=== PATIENT | female | born 2000 | race Caucasian/White ===

== ENCOUNTER 2020-04-16 09:40 | Outpatient (REF) | payer OTHER, SELFPAY | END 2020-04-16 09:41 | disposition home or self-care (01) | LOC: HO.LNP 09:40 | PROVIDERS: PCP Physician Assistant; Referring Provider Physician Assistant; Visit Provider Obstetrics & Gynecology | DX: N39.0 Urinary tract infection, site not specified (principal); R79.89 Other specified abnormal findings of blood chemistry | CPT/HCPCS: 87086; 87088; 87186; 99212 ==

== ENCOUNTER → 2020-07-22 10:38 | Outpatient (BNVA) | payer OTHER, SELFPAY | PROVIDERS: PCP Physician Assistant; Visit Provider Obstetrics & Gynecology | DX: Z30.9 Encounter for contraceptive management, unspecified (principal) | CPT/HCPCS: 99212 ==

== ENCOUNTER 2020-10-30 14:25 | Outpatient (REF) | payer OTHER, SELFPAY ==
[2020-11-01 02:04] LABS: CT PCR NOT DETECTED (Not Detect.); NG PCR NOT DETECTED (Not Detect.)
[2020-11-01 13:35] LABS: BV Int Neg Control Negative (Negative); BV Int Pos Control Positive (Positive)
[2020-11-12 21:26] LABS: HPV 16 RNA NOT DETECTED (NOT DETECTED); HPV mRNA E6/E7 rflx Detected (Not Detected)
== END 2020-10-30 14:26 | disposition home or self-care (01) ==
LOC: HO.LAB 14:25
PROVIDERS: PCP Physician Assistant; Visit Provider Advanced Practice Midwife
DX: Z01.419 Encounter for gynecological examination (general) (routine) without abnormal findings (principal); Z11.3 Encounter for screening for infections with a predominantly sexual mode of transmission; Z20.2 Contact with and (suspected) exposure to infections with a predominantly sexual mode of transmission
CPT/HCPCS: 87480; 87491; 87510; 87591; 87624; 87625; 87660; 88142

== ENCOUNTER → 2021-03-06 09:58 | Outpatient (BNVA) | payer OTHER, SELFPAY | PROVIDERS: Visit Provider Advanced Practice Midwife | DX: Z30.017 Encounter for initial prescription of implantable subdermal contraceptive (principal) | CPT/HCPCS: 11981; 81025; 99212; J7307 ==

== ENCOUNTER 2021-09-17 12:30 | Outpatient (REF) | payer OTHER, SELFPAY ==
[2021-09-17 17:56] LABS: CT PCR NOT DETECTED (Not Detect.); NG PCR NOT DETECTED (Not Detect.)
[2021-09-18 11:09] LABS: BV Int Neg Control Negative (Negative); BV Int Pos Control Positive (Positive)
== END 2021-09-17 12:31 | disposition home or self-care (01) ==
LOC: HO.LAB 12:30
PROVIDERS: Visit Provider Obstetrics & Gynecology
DX: Z12.4 Encounter for screening for malignant neoplasm of cervix (principal); N93.0 Postcoital and contact bleeding; N76.0 Acute vaginitis; B96.89 Other specified bacterial agents as the cause of diseases classified elsewhere; R87.610 Atypical squamous cells of undetermined significance on cytologic smear of cervix (ASC-US); R87.810 Cervical high risk human papillomavirus (HPV) DNA test positive
CPT/HCPCS: 87480; 87491; 87510; 87591; 87660; 88142; 99212

== ENCOUNTER 2021-11-26 13:58 | Outpatient (REF) | payer OTHER, SELFPAY | END 2021-11-26 13:59 | disposition home or self-care (01) | LOC: HO.LAB 13:58 | PROVIDERS: Visit Provider Obstetrics & Gynecology | DX: Z32.02 Encounter for pregnancy test, result negative (principal); R87.610 Atypical squamous cells of undetermined significance on cytologic smear of cervix (ASC-US); R87.810 Cervical high risk human papillomavirus (HPV) DNA test positive | CPT/HCPCS: 57454; 81025; 88305; 88342; 88360 ==

== ENCOUNTER → 2021-12-10 09:26 | Outpatient (BNVA) | payer OTHER, SELFPAY | PROVIDERS: Visit Provider Obstetrics & Gynecology | DX: D06.9 Carcinoma in situ of cervix, unspecified (principal) | CPT/HCPCS: 99212 ==

== ENCOUNTER 2021-12-25 11:59 | Day surgery (SDC) | payer OTHER, SELFPAY ==
--- NOTE | 2021-12-23 15:19 | HO.ANESPROP2 ---
HPI - Anesthesia Eval Consult details Narrative: 21yo F for LEEP cone with post cone ECC PMFSH Active Problems Active Problems: All Active Problems (Updated 12/10/21 @ 09:35 by Kareem Clemons MD) YOLANDA III (cervical intraepithelial neoplasia grade III) with severe dysplasia (Acute) ASCUS with positive high risk HPV cervical (Acute) Bacterial vaginosis (Acute) Postcoital bleeding (Acute) Insertion of Nexplanon (Acute) Cervical cancer screening (Acute) Potential exposure to STD (Acute) control counseling (Acute) Well woman exam with routine gynecological exam (Acute) UTI (urinary tract infection) (Acute) Contraceptive management (Acute) Social History Social History Alcohol intake: current Alcohol intake frequency: holidays/special occasions only Patient Tobacco Use Status: Never used Tobacco Gender identity: Female Meds Allergies Allergy/AdvReac Type Severity Reaction Status Date / Time No Known Allergies Allergy Verified 12/21/21 14:38 Home Medications Medication Instructions Recorded Confirmed Last Taken Type etonogestrel 68 mg subdermal subdermal 09/17/21 Unknown History implant (Nexplanon) Exam Exam Date and Time: December 23, 2021 1519 Assessment and Plan Assessment Anesthesia Assessment: Chart Reviewed
[2021-12-25 12:20] VITALS: BMI 21.8
[2021-12-25 12:37] LABS: UPreg QC Valid YES; Urine Pregnancy NEGATIVE (NEGATIVE)
[2021-12-25 12:41] VITALS: BP 124/78; PULSE 81; RESP 16; TEMP 37; O2SAT 99
[2021-12-25] MEDS: Lactated Ringers 1,000 ML 100 ML IVCONT (12:53)
--- NOTE | 2021-12-25 13:07 | MHC.SHP ---
Pre-Procedural Eval Section A Date of Service: 12/25/21 The patient is an INPATIENT: No Changes since office visit: No Cold of Flu in the past 2 weeks, No New Medical Problems, No Changes in Medication and No Patient answered all questions The History & Physical has been completed within 30 days and I have reviewed it.: Yes Section B Chief Complaint: Carcinoma in situ of cervix, unspecified Allergies: Allergies Allergy/AdvReac Type Severity Reaction Status Date / Time No Known Allergies Allergy Verified 12/21/21 14:38 Plan Diagnosis/Plan: Unchanged I have reviewed the history and physical and performed a pertinent physical examination on my patient. No changes have occurred unless specified.
--- NOTE | 2021-12-25 13:19 | HO.ANESPROP2 ---
[facility] Active Problems Active Problems: All Active Problems (Updated 12/10/21 @ 09:35 by Kareem Clemons MD) YOLANDA III (cervical intraepithelial neoplasia grade III) with severe dysplasia (Acute) ASCUS with positive high risk HPV cervical (Acute) Bacterial vaginosis (Acute) Postcoital bleeding (Acute) Insertion of Nexplanon (Acute) Cervical cancer screening (Acute) Potential exposure to STD (Acute) control counseling (Acute) Well woman exam with routine gynecological exam (Acute) UTI (urinary tract infection) (Acute) Contraceptive management (Acute) Family History Family history of problems with anesthesia: No Surgical History History of Problems with Anesthesia: No Social History Social History Alcohol intake: current Alcohol intake frequency: holidays/special occasions only Patient Tobacco Use Status: Never used Tobacco Use of substances other than those prescribed or required for medical reasons: Yes Are you DNR?: No Advance Directives: No Advance Directives Information Provided: Yes Gender identity: Female Meds Allergies Allergy/AdvReac Type Severity Reaction Status Date / Time No Known Allergies Allergy Verified 12/21/21 14:38 Active Medications: Current Medications Lactated Ringer's (Lr) 1,000 mls @ 100 mls/hr IVCONT .Q10H MIHAI Last Admin: 12/25/21 12:53 Dose: 100 mls/hr Home Medications Medication Instructions Recorded Confirmed Last Taken Type etonogestrel 68 mg subdermal subdermal 09/17/21 Unknown History implant (Nexplanon) Exam Exam Date and Time: December 25, 2021 1319 Height,Weight and Vital Signs: Height 4 ft 11 in Weight 48.988 kg Last Vital Signs Temp 98.6 F 12/25/21 12:41 Pulse 81 12/25/21 12:41 Resp 16 12/25/21 12:41 BP 124/78 12/25/21 12:41 Pulse Ox 99 12/25/21 12:41 O2 Del Method 12/25/21 12:41 Pertinent Lab Results Pertinent Lab Results: Laboratory Tests 12/25/21 12:06 Urine Test NEGATIVE Airway Mallampati Class: I TM Dist: >3cm Neck ROM: Full Assessment and Plan Assessment Anesthesia Assessment: Anesthesia Plan Discussed and Chart Reviewed Final Anesthetic Review Family History of Problems with Anesthesia: No History of Problems with Anesthesia: No NPO: Yes ASA Class: II Final Preanesthetic Review: No Changes in Pt Med Stat, Meds/Allgs Chart Reviewed, Consent Obtained/Reviewed and Anes Risks/Benef Reviewed Patient Risk: Low Anesthetic Plan Anesthetic Plan: GA Disposition: Standard PACU
--- NOTE | 2021-12-25 13:45 | P.BOP_ITS ---
Brief Operative Note Date of Service: 12/25/21 Pre-op diagnosis: YOLANDA 2-3 Post-op diagnosis: same Procedure: LEEP CONE with wider and deeper excision of the anterior and posterior cervixpost CONE ECC Surgeon: Kareem Clemons MD Anesthesia: GLMA, local and other (Paracervical block) Was an Artificial Leather Calender Operator used for this Procedure?: No Estimated blood loss (mL): 0 Pathology: other ( cervical cone, Endocx, Post cone ECC, wider and deeper excision of anterior and posterior cervical) Condition: stable Disposition: other (Home)
--- NOTE | 2021-12-25 13:47 | P.OP_ITS ---
Operative Note Operative Note Date of Service: 12/25/21 Narrative: Pre op diagnosis: YOLANDA 2-3 Operation: Colposcopy, Loop electrical excision procedure cone, endocervical excision, wider and deeper excision of anterior posterior cervical lip, post cone ECC Postop diagnosis: the same Quantitative blood loss: 50 cc Surgeon: Kareem Clemons MD, FACOG Marble Helper: None Pathology: Cervical cone, top-hat endo cervical excision, endo cervical curettage , wider and deeper anterior cervical lip and posterior cervical Complications: none Anesthesia: GLMA and Para cervical block Procedure: The patient was put in a dorsal lithotomy position, scrubbed and draped in the usual sterile fashion. A speculum was inserted inside the patient's vagina. The cervix is assessed using the colposcope with acetic acid , the lesions were seen, and at least 1 cm of the squamocolumnar junction was observed. A loop was selected based upon the diameter of the lesion. Lugol solution was used to outline the lesions and area of the transformation zone order to be removed 10 cc of xylocaine with epinephrine were injected submucosally into the surface of the cervix (ectocervix) at the 3, 6, 9, and 12 o'clock positions. The electrosurgical generator is set at 40 roque on blend 1. The loop is carefully passed simultaneously around and under the transformation zone, in order to ensure excising it making sure the lesion is at least 5 mm far from the specimen margins . The loop was allowed to glide through the cervix from one side to the other, allowing the cutting current to divide the tissue, next an endo cervical top-hat excision was performed, this was followed by wider and deeper excision than the previously excisedLEEP cone of anterior posterior cervical lip. An endo cervical curettage is performed following completion of excision, and hemostasis is obtained with a Ball electrode or regular tip cautery. At the end, Monsel's solution was applied to the cone bed. The patient tolerated the procedure well and, all instruments were taken out of the patient vaginal cavity, and the patient was transferred to the PACU in stable condition.
[2021-12-25 14:00] VITALS: BP 135/91; PULSE 86; RESP 16; TEMP 36.1; O2SAT 100
[2021-12-25 14:05] VITALS: BP 118/87; PULSE 87; RESP 16; O2SAT 100
[2021-12-25 14:10] VITALS: BP 130/83; PULSE 77; RESP 18; O2SAT 100
[2021-12-25 14:15] VITALS: BP 131/75; PULSE 71; RESP 18; TEMP 36.4; O2SAT 100
== END 2021-12-25 14:45 | disposition home or self-care (01) ==
PROVIDERS: Visit Provider Obstetrics & Gynecology
PROC: 0UBC7ZZ Excision of Cervix, Via Natural or Artificial Opening (ICD-10-PCS; CPT 57522; principal; 2021-12-25 14:10)
DX: N72 Inflammatory disease of cervix uteri (principal); Z86.001 Personal history of in-situ neoplasm of cervix uteri
CPT/HCPCS: 57461; 81025; 88305; 88307; 88341; 88342; 88360; J1100; J2250; J2405; J3010

== ENCOUNTER → 2021-12-29 14:56 | Outpatient (BNVA) | payer OTHER, SELFPAY | PROVIDERS: Visit Provider Obstetrics & Gynecology | DX: Z32.02 Encounter for pregnancy test, result negative (principal); N73.0 Acute parametritis and pelvic cellulitis | CPT/HCPCS: 81025; 96372; 99212; J0696 ==

== ENCOUNTER 2022-08-16 10:44 | Outpatient (REF) | payer OTHER, SELFPAY | END 2022-08-16 10:45 | disposition home or self-care (01) | LOC: HO.LNP 10:44 | PROVIDERS: Visit Provider Obstetrics & Gynecology | DX: Z12.4 Encounter for screening for malignant neoplasm of cervix (principal); D06.9 Carcinoma in situ of cervix, unspecified | CPT/HCPCS: 88142; 99212 ==

== ENCOUNTER 2024-12-27 14:54 | Outpatient (AMB) | payer BC, SELFPAY ==
--- NOTE | 2024-12-27 14:59 | MHC.OFFVIS ---
Vital Signs 12/27/24 15:04 Height 4 ft 11 in Weight 114 lb BMI 23.0 BP 110/70 Intake Visit Reasons: Nexplanon removal Farmworker Required: No Information Interpreted: non-clinical & clinical Chemical Manager: Chemical Manager Present (Randi GLOVER) Accompanied by: Self / Same As Patient Allergies No Known Allergies Allergy (Verified 12/27/24 15:05) Is last menstrual period known: Yes Last menstrual period: 12/09/24 HPI Comments Details: Presenting requesting Nexplanon removal. The patient had Nexplanon inserted more than 3 years ago and is interested in discussing different options of control [facility] Medical History YOLANDA III (cervical intraepithelial neoplasia grade III) with severe dysplasia Family History Mother Asthma Brother Asthma Social History Household Members: Family Housing: House Alcohol intake: current Alcohol intake frequency: holidays/special occasions only Patient Tobacco Use Status: Never used Tobacco Current occupational status: employed Current occupation: hospice social worker Sexually active: Yes Sexual orientation: Straight/Heterosexual Gender identity: Female Female Reproductive History Menstrual Age of Menarche: 12 Date of last menstrual period: 12/09/24 control method: implanted Total pregnancies: 0 Review of Systems Const All systems reviewed & are unremarkable except as noted in HPI and below Reports as per HPI and Reports no additional complaints Card Reports as per HPI Resp Reports as per HPI GI Reports no additional complaints Reports no additional complaints Physical Exam Vital Signs: Last Vital Signs BP 110/70 12/27/24 15:04 BMI result Body Mass Index 23.0 Const General: cooperative, healthy appearing and comfortable Chest Chest palpation & inspection: normal inspection of the chest and normal palpation of entire chest wall Breast/axilla inspection: normal inspection of the breasts and normal inspection of the axillae Breast/axilla palpation: normal palpation of the breasts, normal palpation of the axillae and no axillary lymphadenopathy Resp Effort & Inspection: normal respiratory effort Auscultation: clear to auscultation bilaterally Percussion: percussion normal Cardio Palpation: normal PMI Rate: regular rate Rhythm: regular rhythm Heart sounds: no murmurs and no rubs Peripheral pulses: Peripheral pulses 2+ throughout GI Inspection: Yes normal to inspection Palpation (GI): Soft to palpation, nontender, no guarding, not rigid and No hepatosplenomegaly present Percussion: Yes normal to percussion Auscultation: normal bowel sounds Rectal Exam - Female: deferred General: Yes bladder normal to palpation External Female Exam: No lesion Speculum Exam - Vagina: normal appearance of the vagina, normal palpation, normal vaginal discharge and not erythematous Speculum Exam - Cervix: normal appearance of the cervix and normal palpation Bimanual exam- vagina & uterus: normal bimanual exam, normal palpation, uterine size normal, bladder normal to palpation, consistency normal and normal palpation Bimanual Exam- Adnexa, other: normal adnexae, no masses and no tenderness Office Procedures Contraception Insert/Removal Details Details: Counseling/Consent: After discussing with the patient the risks of the procedure including bleeding, infection, scar tissue formation, , possible injury to blood vessels or nerves, chronic arm pain, blood transfusion, and irregular unpredictable bleeding Preopdx: Requesting Nexplanon removal Op: Nexplanon Removal Post op dx: same EBL= 10 cc Procedure: After discussing with the patient the risks of the procedure including bleeding, infection, scar tissue formation, the patient signed the consent and agreed with the plan; all questions answered. The patient was then put in the dorsal supine position with Left arm in which Nexplanon is located exposed. Then the area was scrubbed with betadine. Nexplanon was located next by palpation and the end closest to the elbow was marked with a sterile marker. 5cc 1% Xylocaine was used to anesthetize the area at the site near the tip of Nexplanon. Next, a 3 mm incision in the longitudinal direction of the arm at the tip of the implant was made and the Nexplanon was pushed toward the incision until the tip was visible. The implant was grasped with a curved mosquito forceps and pulled out gently. Then incision was closed with steri-strips approximating the edges and an adhesive bandage was applied. A pressure bandage was applied with sterile gauze to minimize bruising. At the end explained to the patient that she is not covered with contraception anymore and recommended for her to use another contraceptive method. Discharge instructions: Patient was instructed to call if any of the following occurs :temperature above 100.4, pain at the side of the incision, redness, discharge or gapping, arm pain or bleeding. All questions answered patient verbalized understanding . This note was generated with a voice recognition program. Some errors may have been overlooked during the review of this note. Sometimes these errors may affect the content or meaning of a given sentence. 52400 - Removal Results AMB Test Urine AMB Test Urine Negative Last Edit by Randi Sanders CMA on 12/27/24 15:25 Results Reviewed Results Reviewed: Laboratory Last Values Tst Clinic Negative 12/27/24 15:24 Assessment & Plan Assessment & Plan (1) Nexplanon removal: Code(s): Z30.46 - Encounter for surveillance of implantable subdermal contraceptive Category: Medical Plan: Nexplanon removal done, see procedure note (2) Family planning: Code(s): Z30.09 - Encounter for other general counseling and advice on contraception Category: Social Hx Plan: Discussed with the patient the different options of control including control pills/Nuvaring, Depo Medroxy Progesterone Acetate, IUD ( levonorgestrel, Copper), sterilization. All the pros, cons, risks and benefits of each were discussed with the patient. The patient decided to go ahead with [facility] so a more detailed discussion re: control pills including mechanism of action, benefits (regular menses, less dysmenorrhea, less risk of ovarian cancer, ...), risks ( DVT, PE, Strokes, MD, increased breast ca, others). Instructions were given to use a back- up method for contraception x 1st 2 weeks, and to schedule a 3 months appointment for blood pressure check Orders: Orders AMB HCG Urine Test Today Z32.02 - Encounter for test, result negative Medications: New desogestrel-ethinyl estradiol 0.15-0.03 mg (Apri) 1 tab PO DAILY 28 tabs 11RF 28 days Coding Level of Care Code Est Pt Level 3 (21633) Procedure Only Diagnoses Nexplanon removal Z30.46 Family planning Z30.09 CPT Codes Details - Contraception: 14260 - Removal ([id number])
[2024-12-27 15:04] VITALS: BP 110/70; BMI 23.0
== END 2024-12-27 15:29 | disposition home or self-care (01) ==
LOC: HO.HWS 14:54
PROVIDERS: PCP Family Medicine; Visit Provider Obstetrics & Gynecology
DX: Z30.09 Encounter for other general counseling and advice on contraception (principal); Z30.46 Encounter for surveillance of implantable subdermal contraceptive; Z32.02 Encounter for pregnancy test, result negative
CPT/HCPCS: 11982; 99213

== ENCOUNTER → 2024-12-27 14:54 | Outpatient (BNVA) | payer BC, SELFPAY | PROVIDERS: PCP Family Medicine; Visit Provider Obstetrics & Gynecology | DX: Z30.46 Encounter for surveillance of implantable subdermal contraceptive (principal); Z32.02 Encounter for pregnancy test, result negative | CPT/HCPCS: 11982; 81025 ==

== ENCOUNTER 2025-04-11 15:51 | Outpatient (REF) | payer BC, SELFPAY ==
[2025-04-12 01:06] LABS: CT PCR NOT DETECTED (Not Detect.); NG PCR NOT DETECTED (Not Detect.)
== END 2025-04-11 15:52 | disposition home or self-care (01) ==
LOC: HO.LNP 15:51
PROVIDERS: PCP Family Medicine; Visit Provider Obstetrics & Gynecology
DX: Z01.419 Encounter for gynecological examination (general) (routine) without abnormal findings (principal); D06.9 Carcinoma in situ of cervix, unspecified
CPT/HCPCS: 87491; 87591; 88175

== ENCOUNTER 2025-04-11 15:51 | Outpatient (AMB) | payer BC, SELFPAY ==
--- NOTE | 2025-04-11 15:52 | A.OFFVIS_ITS ---
Vital Signs 04/11/25 15:54 Height 4 ft 11 in Weight 113 lb BMI 22.8 BP 114/62 Intake Visit Reasons: annual/med check Allergies No Known Allergies Allergy (Verified 12/27/24 15:05) Is last menstrual period known: Yes Last menstrual period: 03/14/25 HPI Comments Details: Presenting for annual exam. No complaints. Last Pap was negative in 08/15 09/13 LSIL suspicious for HSIL, colpo biopsy YOLANDA 1/2/2-3 01/14 LEEP cone with post cone ECC, negative pathology The patient had inactive insurance and lost followed [facility] Medical History Hx LEEP (loop electrosurgical excision procedure), cervix, YOLANDA III (cervical intraepithelial neoplasia grade III) with severe dysplasia Surgical History History of loop electrical excision procedure (LEEP) Family History Mother Asthma Brother Asthma Social History Household Members: Significant Other Housing: House Alcohol intake: former Patient Tobacco Use Status: Never used Tobacco e-Cigarette/Vaping Use: Currently Using Frequency of e-Cigarette/Vaping Use: daily Use of substances other than those prescribed or required for medical reasons: Yes Substance Use Type: Marijuana Substance Use Frequency: Occasionally Current occupational status: employed Current occupation: hoist worker Sexually active: Yes Sexual orientation: Straight/Heterosexual Gender identity: Female Female Reproductive History Menstrual Age of Menarche: 12 Date of last menstrual period: 03/14/25 control method: pills Total pregnancies: 0 Date of last pap smear: 08/16/22 Review of Systems Const All systems reviewed & are unremarkable except as noted in HPI and below Card Reports as per HPI Resp Reports as per HPI GI Reports as per HPI and Reports no additional complaints Reports as per HPI Physical Exam Vital Signs: Last Vital Signs BP 114/62 04/11/25 15:54 BMI result Body Mass Index 22.8 Const General: cooperative, healthy appearing and comfortable Chest Chest palpation & inspection: normal inspection of the chest and normal palpation of entire chest wall Breast/axilla inspection: normal inspection of the breasts and normal inspection of the axillae Breast/axilla palpation: normal palpation of the breasts, normal palpation of the axillae and no axillary lymphadenopathy Resp Effort & Inspection: normal respiratory effort Auscultation: clear to auscultation bilaterally Percussion: percussion normal Cardio Palpation: normal PMI Rate: regular rate Rhythm: regular rhythm Heart sounds: no murmurs and no rubs Peripheral pulses: Peripheral pulses 2+ throughout GI Inspection: Yes normal to inspection Palpation (GI): Soft to palpation, nontender, no guarding, not rigid and No hepatosplenomegaly present Percussion: Yes normal to percussion Auscultation: normal bowel sounds Rectal Exam - Female: deferred General: Yes bladder normal to palpation External Female Exam: No lesion Speculum Exam - Vagina: normal appearance of the vagina, normal palpation, normal vaginal discharge and not erythematous Speculum Exam - Cervix: normal appearance of the cervix and normal palpation Bimanual exam- vagina & uterus: normal bimanual exam, normal palpation, uterine size normal, bladder normal to palpation, consistency normal and normal palpation Bimanual Exam- Adnexa, other: normal adnexae, no masses and no tenderness Assessment & Plan Assessment & Plan (1) Well woman exam with routine gynecological exam: Comment: 09/13 LSIL suspicious for HSIL, colpo biopsy YOLANDA 1/2/2-3 01/14 LEEP cone with post cone ECC, negative pathology 08/15 negative Pap Code(s): Z01.419 - Encounter for gynecological examination (general) (routine) without abnormal findings Category: Medical Plan: GC/CT collected Cotesting done. Counseled the patient about the recommended dietary allowance of 1000 mg of Calcium & 600 IU of vitamin D. The patient was instructed to perform monthly self-breast exams and to schedule an annual exam in a year; All questions answered and the patient verbalized understanding. Instructed the patient to schedule annual exam in a year Coding Level of Care Code Est Pt Prev Care 18-39y(60614) Diagnoses Well woman exam with routine gynecological exam Z01.419
[2025-04-11 15:54] VITALS: BP 114/62; BMI 22.8
== END 2025-04-11 16:09 | disposition home or self-care (01) ==
PROVIDERS: PCP Family Medicine; Visit Provider Obstetrics & Gynecology
DX: Z01.419 Encounter for gynecological examination (general) (routine) without abnormal findings (principal)
CPT/HCPCS: 99395; 99459